=== PATIENT | female | born 1995 | race Caucasian/White ===

== ENCOUNTER 2016-11-25 18:23 | Emergency (ER) | payer BC ==
[2016-11-25 18:36] VITALS: BP 130/67
[2016-11-25] MEDS ORDERED: Albuterol/Ipratropium NEB.SOL* Albuterol 2.5 MG/Ipratropium 0.5 MG 3 ML INH ONE (19:09)
--- NOTE | 2016-11-25 19:09 | UC ---
Shortness of Breath HPI - HPI Summary HPI Summary: Patient presents to the with with CC: for the past 2 weeks she has been coughing and feels like her asthma is worse. she had an asthma attack a few days ago went to [facility]. She was given prednisone and was sent home. Today she has felt like she was going to pass out. She wakes up coughing. her body also hurts. she usually only uses a rescue inhaler. she usually only uses it when she plays sports but she has been using it three times a day. she has had general malaise for the last 3 days. Denies sweats, chills or other signs of a systemic illness, but notes to fevers. She has never used an ICS. She denies other steroid use. She states her main complaint today is coughing (spastic cough) without much production. - History of Current Complaint Chief Complaint: UCRespiratory Stated Complaint: COUGH Time Seen by Provider: 11/25/16 18:45 Hx Obtained From: Patient Hx Last Menstrual Period: 11/09/16 ?: No Onset/Duration: Sudden Onset Timing: Constant Current Severity: Mild Aggrevating Factors: Deep Breaths Associated Signs & Symptoms: Positive: Cough (Nonproductive), Other - spastic cough - Risk Factors Pulmonary Embolism: Negative Cardiac: Negative Pseudomonas: Negative Tuberculosis: Negative - Allergy/Home Medications Allergies/Adverse Reactions: Allergies Allergy/AdvReac Type Severity Reaction Status Date / Time No Known Allergies Allergy Verified 11/25/16 18:35 Home Medications: Home Medications Albuterol HFA INHALER* [Ventolin HFA Inhaler*] 2 puff INH Q4H PRN 11/25/16 [ History Confirmed 11/25/16] Multivitamins/Minerals TAB* [Thera M Plus TAB*] 1 tab PO DAILY 11/25/16 [ History Confirmed 11/25/16] PMH/Surg Hx/FS Hx/Imm Hx Previously Healthy: Yes - Surgical History Surgical History: None - Family History Known Family History: Positive: Unknown - Social History Occupation: Employed Full-time Lives: With Family Alcohol Use: Occasionally Substance Use Type: None Smoking Status (MU): Never Smoked Tobacco Review of Systems Constitutional: Negative Skin: Negative ENT: Sinus Congestion, Sinus Pain/Tenderness Respiratory: Shortness Of Breath, Cough Motor: Negative Neurovascular: Negative Musculoskeletal: Negative Is Patient Immunocompromised?: No All Other Systems Reviewed And Are Negative: Yes Physical Exam Triage Information Reviewed: Yes Appearance: Well-Appearing, Well-Nourished Vital Signs: Initial Vital Signs Temp 100.4 F 11/25/16 18:31 Pulse 98 11/25/16 18:31 Resp 14 11/25/16 18:31 BP 130/67 11/25/16 18:31 Pulse Ox 100 11/25/16 18:31 Vital Signs Reviewed: Yes Eye Exam: Normal Eyes: Positive: Conjunctiva Clear Neck exam: Normal Neck: Positive: Supple, No Lymphadenopathy Respiratory Exam: Normal Respiratory: Positive: Chest non-tender, Lungs clear Cardiovascular Exam: Normal Cardiovascular: Positive: RRR Musculoskeletal Exam: Normal Musculoskeletal: Positive: Strength Intact Neurological Exam: Normal Neurological: Positive: Alert Psychological: Positive: Normal Response To Family, Age Appropriate Behavior Skin Exam: Normal Shortness of Breath Dx - Course Course Of Treatment: Patient is given ipratroprium ICS d/t worsening cough and asthma symptoms. Duo-neb given in UC with improvement. Chest xray negative. tessalon and robitussin for cough. prednisone x 5 days. She is ok with plan and discharge. Likely viral cold with exacerbation of asthma. - Differential Dx/Diagnosis Differential Diagnosis/HQI/PQRI: Bronchitis Provider Diagnoses: Viral cough with asthma exacerbation Discharge - Discharge Plan Condition: Stable Disposition: HOME Prescriptions: Benzonatate CAP* [Tessalon CAP*] 100 mg PO TID #21 cap Ipratropium HFA INHALER(NF) [Atrovent Hfa Inhaler(NF)] 1 puff INH QID #1 mdi guaiFENesin/CODIEN 100MG-10MG* [Robitussin AC 100Mg-10Mg*] 10 ml PO BEDTIME # 100 udc MDD 10 predniSONE TAB* [Deltasone TAB*] 50 mg PO DAILY #5 tab Patient Education Materials: Ipratropium (By breathing), Asthma (ED) Referrals: Non Staff,Doctor [Primary Care Provider] - Additional Instructions: Use the cough medication as needed Tessalon during the day (up to three times daily) and robitussin at bedtime (2 teaspoons at bedtime or every 4 hours as needed for cough) Ipratroprium inhaler only as needed (up to four times daily for shortness of breath) Prednisone 50mg daily in the MORNING If you develop worsening fevers, or cough - return to the Humidifier in the home will help. Tylenol for discomfort. Take all medications as directed. Symptoms should resolve in 1-3 weeks. If symptoms become worse, please come back to or go to the ED. Honey and lemon hot tea Rest plenty of fluids.
--- NOTE | 2016-11-25 19:26 | RAD ---
INDICATION: Cough x2 weeks COMPARISON: None TECHNIQUE: PA and lateral views of the chest were obtained. FINDINGS: The heart and mediastinum are normal in size and contour. The lungs are grossly clear. There is no evidence of large pleural effusion. Visualized bones are normal for the patient's age. There is no radiographic evidence of free air beneath the diaphragm IMPRESSION: No radiographic evidence of acute cardiopulmonary disease.
== END 2016-11-25 19:45 | disposition home or self-care (01) ==
LOC: UCCORT 18:23
DX: J45.901 Unspecified asthma with (acute) exacerbation (principal)
CPT/HCPCS: 71020; 99203; A9270-GY; G0463

== ENCOUNTER 2018-11-01 16:34 | Emergency (ER) | payer BC ==
[2018-11-01 16:59] VITALS: BP 120/73
--- NOTE | 2018-11-01 17:17 | UC ---
UC General HPI - HPI Summary HPI Summary: pt reports having a 2 week hx of episodic abdominal pains in her epigastric area. it occurs mostly after meals. she denies hx of reflux. she does not drink coffee and rarely consumes alcohol. her discomfort is sharp. today it was worse and she vomited x 1. she denied diarrhea to myself but reported diarrhea to triage. no hx IBD or IBS. - History of Current Complaint Chief Complaint: UCGI Stated Complaint: STOMACH PAIN,VOMITTING Time Seen by Provider: 11/01/18 17:10 Hx Obtained From: Patient Hx Last Menstrual Period: 10/24/18 Pain Intensity: 6 Associated Signs & Symptoms: Negative: Dysuria - Allergy/Home Medications Allergies/Adverse Reactions: Allergies Allergy/AdvReac Type Severity Reaction Status Date / Time No Known Allergies Allergy Verified 11/01/18 17:01 Home Medications: Home Medications Fluoxetine HCl [Prozac] 20 mg PO DAILY 11/01/18 [History Confirmed 11/01/18] PMH/Surg Hx/FS Hx/Imm Hx Respiratory History: Asthma Psychological History: Anxiety, Depression, Other - ocd - Surgical History Surgical History: None - Family History Known Family History: Positive: Unknown - Social History Occupation: Student Alcohol Use: Rare Substance Use Type: None Smoking Status (MU): Never Smoked Tobacco Review of Systems All Other Systems Reviewed And Are Negative: Yes Constitutional: Negative: Fever, Chills Gastrointestinal: Positive: Abdominal Pain - epigastric, Vomiting - x1 today, Nausea. Negative: Diarrhea Genitourinary: Positive: Vaginal/Penile Discharge. Negative: Dysuria Physical Exam Triage Information Reviewed: Yes Appearance: Well-Appearing Vital Signs: Initial Vital Signs Temp 98.3 F 11/01/18 16:54 Pulse 63 11/01/18 16:54 Resp 16 11/01/18 16:54 BP 120/73 11/01/18 16:54 Pulse Ox 99 11/01/18 16:54 Vital Signs Reviewed: Yes Eyes: Positive: Conjunctiva Clear ENT: Positive: Pharynx normal, TMs normal. Negative: Nasal congestion, Nasal drainage Neck: Positive: Supple, Nontender, No Lymphadenopathy Respiratory: Positive: Lungs clear, Normal breath sounds, No respiratory distress Cardiovascular: Positive: RRR, No Murmur Abdomen Description: Positive: Other: - Flat. Hyperactive BS. Soft. Pt notes mild epigastric tenderness. No mass. No HSM. No guarding or rebound tenderness. No pulsatile mass. Neurological: Positive: Alert Psychological: Positive: Age Appropriate Behavior Skin Exam: Normal Diagnostics - Laboratory Lab Results: U/A=TRACE BLOOD OTHERWISE UNREMARKABLE. URINE HCG=NEG. Course/Dx - Differential Dx - Multi-Symptom Differential Diagnoses: Other - non toxic. no acute abdomen. no current n/v/d. discomfort has mostly resolved. Possible gerd/dyspepsia. biliary dysfunction is possible. unlikely pancreatitis. will trial a PPI and bland diet. Pt has f/u this coming Tuesday at the [facility]. She agrees to got to the ER for any changes or worsening. - Diagnoses Provider Diagnosis: Epigastric discomfort Discharge ED - Sign-Out/Discharge Documenting (check all that apply): Patient Departure All imaging exams completed and their final reports reviewed: No Studies - Discharge Plan Condition: Stable Disposition: HOME Prescriptions: Omeprazole CAP (NF) [Prilosec CAP* 20 MG] 20 mg PO DAILY #14 cap. Patient Education Materials: Acute Abdominal Pain (ED) Referrals: [facility] [Outside] Additional Instructions: FOLLOW UP WITH THE [facility] SCHEDULED FOR THIS COMING TUESDAY. GO TO THE ER FOR ANY CHANGES OR WORSENING. - Billing Disposition and Condition Condition: STABLE Disposition: Home
== END 2018-11-01 17:50 | disposition home or self-care (01) ==
LOC: UCCORT 16:34
DX: R10.13 Epigastric pain (principal); R11.2 Nausea with vomiting, unspecified; N89.8 Other specified noninflammatory disorders of vagina; Z32.02 Encounter for pregnancy test, result negative; F41.9 Anxiety disorder, unspecified; F32.9 Major depressive disorder, single episode, unspecified
CPT/HCPCS: 81003; 84702; 99212; G0463